=== PATIENT | male | born 1980 | race Caucasian/White ===

== ENCOUNTER 2022-02-02 15:15 | Emergency (ER) | payer BC, OTHER ==
[2022-02-02] MEDS ORDERED: Ketorolac 30 MG/ML SDV IVPUSH ONE (15:22)
[2022-02-02] MEDS ORDERED: Ondansetron 4 MG/2 ML SDV IVPUSH ONE (15:25)
[2022-02-02] MEDS ORDERED: Morphine 4 MG/ML VIAL IVPUSH ONE (15:49)
== END 2022-02-02 17:09 | disposition home or self-care (01) ==
LOC: MW.ED 15:15
DX: S46.312A Strain of muscle, fascia and tendon of triceps, left arm, initial encounter (principal); V86.52XA Driver of snowmobile injured in nontraffic accident, initial encounter; Y92.410 Unspecified street and highway as the place of occurrence of the external cause
CPT/HCPCS: 71045; 73030; 73080; 96374; 96375; 99283; J1885; J2270; J2405